=== PATIENT | female | born 1975 | race Caucasian/White ===

== ENCOUNTER → 2017-02-24 | Outpatient (CLI) | payer MEDICAID | LOC: SBRMNEURO 21:00 | PROVIDERS: ATTEND Psychiatry & Neurology Sleep Medicine | DX: G47.31 Primary central sleep apnea (principal); G47.33 Obstructive sleep apnea (adult) (pediatric); G47.34 Idiopathic sleep related nonobstructive alveolar hypoventilation ==

== ENCOUNTER → 2017-04-08 | Outpatient (CLI) | payer MEDICAID | LOC: SBRMNEURO 21:00 | PROVIDERS: ATTEND Psychiatry & Neurology Sleep Medicine | DX: G47.31 Primary central sleep apnea (principal); G47.33 Obstructive sleep apnea (adult) (pediatric); G47.34 Idiopathic sleep related nonobstructive alveolar hypoventilation ==

== ENCOUNTER 2017-12-08 09:58 | Day surgery (SDC) | payer MEDICAID ==
[2017-12-08] MEDS ORDERED: LR 1,000 ML IV ONE (10:19)
--- NOTE | 2017-12-08 12:35 | PDGENHP ---
History & Physical Chief Complaint: globius/dysphagia, heartburn reflux, constipation Pertinent Past, Social, Family History: years of gi sx's. obesity, cpap, sleep apnea. tobacco 1 ppd, alcohol none Relevant Physical Exam: A+Ox3. CTA. S1S2, rrr. +BS,soft tender no r/g Cardiorespiratory Assessment: class 3
[2017-12-08] MEDS ORDERED: PROPOFOL 200 MG/20 ML VIAL ONE (12:47)
[2017-12-08] MEDS ORDERED: PROPOFOL/EMULSION 500 MG/50 ML BOTTLE IV ONE (12:47)
--- NOTE | 2017-12-08 13:17 | PDANEPAE ---
ANE History of Present Illness GERD, abdominal pain, constipation ANE Past Medical History - Cardiovascular History Hx Hypertension: No Hx Arrhythmias: No Hx Chest Pain: No Hx Coronary Artery / Peripheral Vascular Disease: No Hx CHF / Valvular Disease: Yes Hx Palpitations: No Cardiovascular History Comment: CHF DX 2017. FOLLOWED BY [facility] - Pulmonary History Hx COPD: Yes Hx Asthma/Reactive Airway Disease: Yes Hx Recent Upper Respiratory Infection: No Hx Oxygen in Use at Home: Yes O2 in Use at Home (L/minute): 4l cont Hx Sleep Apnea: Yes Sleep Apnea Screening Result - Last Documented: Positive Pulmonary History Comment: nicolette positive uses cpap and o2- instructed pt to bring cpap DOP - Neurologic History Hx Cerebrovascular Accident: No Hx Seizures: No Hx Dementia: No Neurologic History Comment: MIGRAINES. DDD/CDD/HERNIATED DISC - Endocrine History Hx Diabetes: No - Renal History Hx Renal Disorders: Yes Renal History Comment: UA INCONT - Liver History Hx Hepatic Disorders: No - Neurological & Psychiatric Hx Hx Neurological and Psychiatric Disorders: No Neurological / Psychiatric History Comment: MIGRAINES - Cancer History Hx Cancer: No - Congenital Disorder History Hx Congenital Disorders: No - GI History GERD: moderate Hx Gastrointestinal Disorders: Yes Gastrointestinal History Comment: REFLUX. CONSTIPATION - Other Health History Other Health History: UPPER AND LOWER MISSING TEETH. wears glasses - Chronic Pain History Chronic Pain: Yes (NECK,BACK AND LEGS) - Surgical History Prior Surgeries: BREAST AUGMENTATION. BREAST REDUCTION WITH REVISION. THOMAS. EGD/COLONOSCOPY. HYSTERECTOMY WITH MESH. WITH REMVL AND REPLACEMENT OF MESH, BLADDER SLING AND REMVD. JOLIE VEIN LIGATION ANE Review of Systems Review of Systems: - Exercise capacity METS (RN): 3 METS ANE Patient History - Allergies Allergies/Adverse Reactions: egg Allergy (Verified 11/12/17 10:24) GI hydrocodone [From Vicodin] Allergy (Verified 11/12/17 10:24) Hives latex Allergy (Verified 11/12/17 10:24) Hives - Home Medications Home Medications: ALBUTEROL SULFATE PRN 08/19/17 [Last Taken 12/08/17 09:00] Ranitidine HCl 08/19/17 [Last Taken 1 Week Ago ~12/01/17] Spiriva Inhaler (RX) 08/19/17 [Last Taken 12/07/17] oxyCODONE/APAP 5/325 PRN 08/19/17 [Last Taken 12/06/17] Cetirizine 11/12/17 [Last Taken 1 Week Ago ~12/01/17] Flonase Nasal [place] 11/12/17 [Last Taken 12/07/17] Furosemide 11/12/17 [Last Taken 1 Week Ago ~12/01/17] Herbals/Supplements -Info Only 11/12/17 [Last Taken 1 Week Ago ~12/01/17] Ibuprofen PRN 11/12/17 [Last Taken 2 Weeks Ago ~11/24/17] Meloxicam 11/12/17 [Last Taken 12/07/17] - NPO status NPO Since - Liquids (Date): 12/08/17 NPO Since - Liquids (Time): 08:30 NPO Since - Solids (Date): 12/07/17 NPO Since - Solids (Time): 11:00 - Smoking Hx Smoking Status: Former smoker - Family Anes Hx Family Hx Anesthesia Complications: none ANE Labs/Vital Signs - Vital Signs Blood Pressure: 111/73 Heart Rate: 81 Respiratory Rate: 18 O2 Sat (%): 91 Height: 154.94 cm Weight: 100.244 kg ANE Physical Exam - Airway Neck exam: FROM Mallampati Score: Class 2 Mouth exam: poor dentition - Pulmonary Pulmonary: reduced air movement (2/2 body habitus) - Cardiovascular Cardiovascular: regular rate and rhythym - ASA Status ASA Status: III ANE Anesthesia Plan Anesthesia Plan: GA with mask
[2017-12-08] MEDS ORDERED: ALBUTEROL 3 ML DEYVIAL IH PRN (13:27)
--- NOTE | 2017-12-08 13:30 | GIREPORT ---
[facility] Surgical Services - Endoscopy Department Patient Name: Kayleigh Traore Procedure Date: 12/08/2017 1:01 PM Patient Type: Outpatient Attending MD/ ER Physician: Veronica Jewell Procedure: Colonoscopy Indications: Generalized abdominal pain, Chronic idiopathic constipation Providers: Roldan Bedolla MD Referring MD: Nette Carlton Medicines: See the Anesthesia note for documentation of the administered medicatio ns Complications: No immediate complications. Estimated blood loss: Minimal. Description of Procedure: After obtaining informed consent, the scope was passed under direct vis ion. Throughout the procedure, the patient's blood pressure, pulse, and oxyg en saturations were monitored continuously. The Colonoscope with irrigatio n channel was introduced through the anus and advanced to the cecum, identified by the appendiceal orifice, IC valve and transillumination. The colonoscopy was performed with difficulty. The patient tolerated the procedure well. The quality of the bowel preparation was poor. Findings: The digital rectal exam was normal. Extensive amounts of semi-solid solid stool was found in the entire col on, precluding visualization. Multiple small and large-mouthed diverticula were found in the sigmoid colon, descending colon and transverse colon. A polyp was found in the sigmoid colon. The polyp was semi-pedunculated . Biopsies were taken with a cold forceps for histology. Estimated blood loss was minimal. The exam was otherwise without abnormality. Estimated Blood Loss: Estimated blood loss was minimal. Post Op Diagnosis: - Preparation of the colon was poor. - Stool in the entire examined colon. - Diverticulosis in the sigmoid colon, in the descending colon and in t he transverse colon. - One polyp in the sigmoid colon. Biopsied. Did not want to use electrocautery in an unprepped colon. - The examination was otherwise normal. Recommendation: - Await pathology results. - My office will call with the pathology result with 5-7 days. If you h ave not heard from my office by 12-14, do not assume the pathology is alison l, please call [phone] to get the pathology results. - If the pathology report reveals adenomatous tissue, then repeat the colonoscopy because the bowel preparation was poor at the next [facility] e appointment. Needs extended constipation prep to clean adequately for colonoscopy. - If the pathology report reveals no adenomatous tissue, then repeat e colonoscopy for screening purposes in 6 years. - High fiber diet indefinitely. - 30-35 grams of dietary fiber per day. Can use supplemental fiber. - A high fiber diet may decrease risk of complications from diverticulo sis. There is no need to avoid seeds or nuts. - Use Miralax 1 capful (17 grams) in 8 ounces of water PO TID PRN. If n ot effective, then can consider Linzess, Amitiza or Trulance. - Patient has a contact number available for emergencies. The signs and symptoms of potential delayed complications were discussed with the pat ient. Return to normal activities tomorrow. Written discharge instructions we re provided to the patient. - Continue present medications. - Discharge patient to home (ambulatory). - Return to primary care physician as previously scheduled. - See EGD for other recommendations - Thank you for allowing me to help in your patient's care. Do not hesi bolaños to call with any questions. Attending Participation: I personally performed the entire procedure. Graeme Montilla M.D Roldan Bedolla MD 12/08/2017 1:29:46 PM This report has been signed electronicallyMathew MD Graeme Number of Addenda: 0 Note Initiated On: 12/08/2017 1:01 PM [email or web address]
--- NOTE | 2017-12-08 13:31 | GIREPORT ---
[facility] Surgical Services - Endoscopy Department Patient Name: Kayleigh Traore Procedure Date: 12/08/2017 12:47 PM Patient Type: Outpatient Attending MD/ ER Physician: Veronica Jewell Procedure: Upper GI endoscopy Indications: Suspected gastro-esophageal reflux disease, Globus sensation Providers: Roldan Bedolla MD Referring MD: Nette Carlton Medicines: Total IV Anesthesia (TIVA) = IV general with spont resps. No airway Complications: No immediate complications. Estimated blood loss: Minimal. Description of Procedure: After obtaining informed consent, the endoscope was passed under direct vision. Throughout the procedure, the patient's blood pressure, pulse, and oxygen saturations were monitored continuously. The Endoscope was intro duced through the mouth, and advanced to the third part of duodenum. The uppe r GI endoscopy was accomplished without difficulty. The patient tolerated th e procedure well. Findings: There were esophageal mucosal changes suggestive of short-segment [place] tt's esophagus present in the lower third of the esophagus. The maximum longitudinal extent of these mucosal changes was 2 cm in length. Mucosa was biopsied with a cold forceps for histology. One specimen bottle was sen t to pathology. Estimated blood loss was minimal. The entire examined stomach was normal. The examined duodenum was normal. Biopsies for histology were taken wit h a cold forceps for evaluation of celiac disease. Estimated blood loss was minimal. The exam was otherwise without abnormality. Estimated Blood Loss: Estimated blood loss was minimal. 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 Biopsied. - Normal stomach. - Normal examined duodenum. Biopsied. - The examination was otherwise normal. Recommendation: - Await pathology results. - My office will call with the pathology result with 5-7 days. If you h ave not heard from my office by 01-21, do not assume the pathology is alison l, please call [phone] to get the pathology results. - Follow an antireflux regimen. - Use Protonix (pantoprazole) 40 mg PO daily. Take 30-60 minutes before breakfast. Other pPI could be used as per formulary - Use Zantac (ranitidine) 300 mg PO at bedtime. - If pathology c/w Brenner's, then PPI mcfp and repeat EGD in one year. - Perform a colonoscopy today. - Return to primary care physician as previously scheduled. - Thank you for allowing me to help in your patient's care. Do not hesi bolaños to call with any questions. Attending Participation: I personally performed the entire procedure. Graeme Montilla M.D Roldan Bedolla MD 12/08/2017 1:30:41 PM This report has been signed electronicallyMathew MD Graeme Number of Addenda: 0 Note Initiated On: 12/08/2017 12:47 PM [email or web address]
--- NOTE | 2017-12-08 13:54 | POSTANESTH ---
Post Anesthetic Evaluation Cardiovascular Status: Normal, Stable Respiratory Status: Similar to Pre-op Cond. (Pt has COPD, DAVSI, and morbidly obese. Preop sats in high 80s on room air. Pt was requesting oxygen in preop. Uses oxgen at night at home.) Level of Consciousness/Mental Status: Can Participate in Eval Pain Control: Adequate, Prn Tx Ordered Nausea/Vomiting Control: Adequate, Prn Tx Ordered Complications Possibly Related to Anesthesia: None Noted
[2017-12-08 14:18] VITALS: BP 100/73
== END 2017-12-08 14:34 | disposition home or self-care (01) ==
LOC: FSGY 09:58
PROVIDERS: ATTEND Internal Medicine Gastroenterology
DX: R13.10 Dysphagia, unspecified (principal); K21.9 Gastro-esophageal reflux disease without esophagitis; R10.9 Unspecified abdominal pain; K59.00 Constipation, unspecified; E66.9 Obesity, unspecified; G47.30 Sleep apnea, unspecified; F17.200 Nicotine dependence, unspecified, uncomplicated; K57.30 Diverticulosis of large intestine without perforation or abscess without bleeding
CPT/HCPCS: J2704